=== PATIENT | male | born 1965 | race Caucasian/White ===

== ENCOUNTER → 2020-06-30 | Outpatient (CLI) | payer OTHER | LOC: CAT 08:15 | PROVIDERS: ATTEND Family Medicine | DX: Z13.6 Encounter for screening for cardiovascular disorders (principal); E78.00 Pure hypercholesterolemia, unspecified; I25.10 Atherosclerotic heart disease of native coronary artery without angina pectoris ==

== ENCOUNTER → 2020-10-19 | Outpatient (CLI) | payer OTHER | LOC: ULTRA 08:47 | PROVIDERS: ATTEND Family Medicine | DX: K76.89 Other specified diseases of liver (principal) ==